=== PATIENT | female | born 1935 | race Caucasian/White ===

== ENCOUNTER → 2017-06-06 | Outpatient (CLI) | payer MEDICARE ==
--- NOTE | 2017-06-06 16:03 | REP ---
CT CHEST WITHOUT IV CONTRAST: CT Chest was performed without IV contrast. There are no prior studies. Sagittal and coronal reconstruction images are performed. The lungs show scattered interstitial fibrotic change bilaterally. No consolidating infiltrate is seen and there is no suspicious nodular opacity seen. No mediastinal, hilar, or chest wall lymphadenopathy is seen. Bilateral breast implants are seen. The left breast implant is ruptured. The heart is mildly enlarged. There is no pleural or pericardial effusion. There are moderate atherosclerotic calcifications of the thoracic aorta. There is dilatation of the ascending thoracic aorta with a maximum AP diameter 4.8 cm. Distal to that the thoracic aorta gradually decreases in caliber. In the proximal aspect of the aortic arch AP diameter is 3.9 cm, proximal descending thoracic aorta 3.6 cm and descending thoracic aorta 3.2 cm at the level of the heart. There are degenerative changes of the spine. IMPRESSION: Aneurysmal dilatation of the ascending thoracic aorta. Mild cardiomegaly. Signed by Amandeep Singh MD 06/06/2017 05:37 P
--- NOTE | 2017-06-06 16:41 | REP ---
CT of the abdomen, pelvis not included, for evaluation of aortic aneurysm: There are no comparison studies. The studies performed without IV and oral contrast: The visualized lower lung haro demonstrate a left breast implant. The implant capsule appears ruptured. Cardiac size is upper normal. The abdominal aorta is tortuous. There is an aneurysm of the distal abdominal aorta just above the bifurcation measuring 3.2 cm in AP diameter on the axial and sagittal views and measuring 3.3 cm transversely on the coronal views. There is calcified atheroma throughout the abdominal aorta. There is no periaortic hematoma. The proximal right iliac artery measures 1.5 cm in diameter and proximal left iliac artery measures 1.3 centimeters in diameter. The unenhanced hepatic parenchyma is homogeneous. There is a 1.9 cm low-density gallbladder calculus with rim calcification. The gallbladder is distended and there is increased density in the fluid in the gallbladder surrounding this calculus which is centrally placed. Findings are nonspecific and could represent cholelithiasis and milk of calcium in the gallbladder, however, neoplasm and cholecystitis are not entirely discounted. Gallbladder wall is mildly indistinct. There is no biliary duct dilatation. The unenhanced splenic parenchyma is homogeneous. The spleen is normal size. The adrenals, unenhanced kidneys are unremarkable. There is no hydronephrosis. There are calcifications near the hilus of the right kidney, possibly vascular atheromatous calcifications. There is no bowel distension. Mesentery is unremarkable. Pelvis: The pelvis is not included in the scan. There are diverticula in the descending colon without associated inflammation compatible with diverticulosis without diverticulitis. Impression: Abdominal aortic aneurysm as described. There is no aneurysmal dilatation of the proximal right and left iliac arteries. There is a gallbladder calculus with an unusual appearance of this calculus and of the gallbladder of uncertain significance. Cholelithiasis, with possibly cholecystitis or possibly neoplasm. Ultrasound and / or MRI might be considered for further evaluation of the gallbladder. Signed by Amandeep Shaffer MD 06/06/2017 04:32 P
== END ==
LOC: M RAD 13:23
PROVIDERS: ATTEND Internal Medicine Cardiovascular Disease
DX: I71.2 Thoracic aortic aneurysm, without rupture (principal)